=== PATIENT | female | born 2000 | race Caucasian/White ===

== ENCOUNTER 2020-06-14 05:06 | Inpatient (IN) | payer OTHER ==
[~2020-06-14] VITALS: Ht 157.5 cm; Wt 86.6 kg
[2020-06-14 07:21] LABS: HEMOGLOBIN 9.9 gm/dl (12.3-15.3); WHITE BLOOD COUNT 10.1 K/UL (4.5-11.0)
[2020-06-15] MEDS ORDERED: HYDROCODON-ACE1 EAC4 PO (14:03)
== END 2020-06-15 16:28 | disposition home or self-care (01) | DRG 806 ==
LOC: OB 05:06
PROVIDERS: ADMIT Obstetrics & Gynecology
PROC: 10E0XZZ Delivery of Products of Conception, External Approach (ICD-10-PCS; principal; 2020-06-14)
PROC: 0KQM0ZZ Repair Perineum Muscle, Open Approach (ICD-10-PCS; 2020-06-14)
PROC: 10907ZC Drainage of Amniotic Fluid, Therapeutic from Products of Conception, Via Natural or Artificial Opening (ICD-10-PCS; 2020-06-14)
PROC: 3E033VJ Introduction of Other Hormone into Peripheral Vein, Percutaneous Approach (ICD-10-PCS; 2020-06-14)
PROC: 3E0234Z Introduction of Serum, Toxoid and Vaccine into Muscle, Percutaneous Approach (ICD-10-PCS; 2020-06-14)
DX: O99.02 Anemia complicating childbirth (principal); O36.0930 Maternal care for other rhesus isoimmunization, third trimester, not applicable or unspecified; Z37.0 Single live birth; D64.9 Anemia, unspecified; Z3A.39 39 weeks gestation of pregnancy; Z23 Encounter for immunization; O70.1 Second degree perineal laceration during delivery
CPT/HCPCS: 36415; 51702; 81001; 82800; 85014; 85018; 85025; 86900; 86901; 90471; 90715; J0595; J2590; J7120